=== PATIENT | male | born 1955 | race Caucasian/White ===

== ENCOUNTER 2018-06-27 10:38 | Emergency (ER) | payer MEDICAID | END 2018-06-27 12:25 | disposition home or self-care (01) | LOC: FTE 10:38 | DX: H61.22 Impacted cerumen, left ear (principal) | CPT/HCPCS: 69209; 99283-25 ==

== ENCOUNTER 2018-11-15 10:24 | Emergency (ER) | payer SELFPAY, MEDICAID ==
[2018-11-15 11:51] LABS: URINE PH (Dip) POC 5.5 (5.0-8.5)
[2018-11-15 11:51] LABS: URINE BLOOD (Dip) POC Negative (NEGATIVE); URINE GLUCOSE (Dip) POC Negative (NEGATIVE); URINE KETONES (Dip) POC Negative (NEGATIVE); URINE LEUKOCYTE EST (Dip) POC Negative (NEGATIVE); URINE NITRITE (Dip) POC Negative (NEGATIVE); URINE TOTAL PROTEIN POC Negative (NEGATIVE)
== END 2018-11-15 12:38 | disposition home or self-care (01) ==
LOC: FTE 10:24
DX: K59.00 Constipation, unspecified (principal)
CPT/HCPCS: 81003; 99282